=== PATIENT | male | born 1955 | race Caucasian/White ===

== ENCOUNTER 2019-10-15 07:32 | Day surgery (SDC) | payer OTHER, SELFPAY ==
--- NOTE | 2019-09-24 03:55 | HP_ITS ---
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 Is patient in pain?: Yes (left groin ) Pain scale (1-10): 3 Allergies No Known Allergies Allergy (Verified 09/24/19 15:03) Medications amlodipine 5 mg tablet 5 mg PO DAILY 09/24/19 [History Confirmed 09/24/19] valsartan 320 mg tablet 320 mg PO DAILY 09/24/19 [History Confirmed 09/24/19] PFSH Medical History (Updated 09/24/19 @ 15:53 by Jay Winchester MD) Inguinal hernia of left side without obstruction or gangrene (Acute) History of testicular cancer (Acute) HTN (hypertension) (Chronic) Surgical History (Updated 09/24/19 @ 15:01 by Jenn Grover) History of colonoscopy (Acute ~2008) History of orchiectomy, unilateral (Acute ~1999) Family History (Updated 09/24/19 @ 15:02 by Jenn Grover) Mother Diabetes Hypertension Cancer Asthma Father Hypertension Social History (Updated 09/24/19 @ 15:55 by Jay Winchester MD) Smoking Status: Former smoker HPI HPI HPI: JEWELS SANTOS, is a 64 M who presents to the office today for HPI HPI Surgical H&P: Yes HPI: JEWELS SANTOS, is a 64 M who presents to the office today for surgical consultation regarding suspected left inguinal hernia. Primary care physician and referring doctor is and a written compromise surgical consult recommendations will be returned to him. For at least 3 months the patient has had some intermittent sharp pain in the left groin. He was dragging a deer within the past week or so and had increased discomfort. He has been able to lie supine and achieve some relief. He has not had a previous left inguinal hernia repair. He has had a previous right radical orchiectomy for testicular cancer in the year 1999. 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 He is expected to be able to lift 60 pounds. He denies any acute change in bowel habits. Otherwise enjoys a very active life both at work and at home. ROS General General: No weight change, appetite, fatigue, colon cancer, breast cancer or weakness HEENT HEENT: No difficulty swallowing, eye injury, eye surgery, swollen glands or hoarseness Endo Endocrine: No thyroid disease, diabetes mellitus, thyroid cancer, Hair loss, heat intolerance or cold intolerance Cardio Cardiovascular: Yes high blood pressure; no murmur, pacemaker, heart disease, atrial fibrillation, heart attack, heart stent, palpitations, shortness of breat with exertion or chest pain Psych Psychiatric: No depression, anxiety or hearing voices Resp Respiratory: No shortness of breath, No sleep apnea, No cough, No COPD, No asthma, No emphysema, No wheezing Gastro Gastrointestinal: Yes abdominal pain, No nausea or vomiting, No diarrhea, No constipation, No blood in stool, No acid reflux, No hemorrhoids, No ulcers, No gallbladder problem, No black,tarry stools Osmin Hematologic: No blood thinners, No blood disorders, No bleeding, No anemia, No blood clots Neuro Neurologic: No weakness Exam Const General: cooperative, healthy appearing, comfortable, no acute distress Nutritional Appearance: average body habitus Orientation: alert, awake [facility] Head: normal to inspection Chest Chest palpation & inspection: normal inspection of the chest Resp Effort & Inspection: normal respiratory effort Auscultation: clear to auscultation bilaterally Cardio Rate: regular rate Rhythm: regular rhythm Heart Sounds: no murmurs GI Palpation: soft, no hepatosplenomegaly Auscultation: normal bowel sounds Other: Well-healed transverse incision right groin. Surgically absent right testicle. Solid right inguinal floor. Left testicle without mass. Easily palpable indirect left inguinal hernia. Reducible with supine positioning. Skin General: no rashes or lesions noted Neuro Cognition: normal cognition Extrem General: no calf tenderness bilaterally Psych Affect: normal affect Assessment & Plan Problems 1. Inguinal hernia of left side without obstruction or gangrene K40.90 Plan Symptomatic reducible indirect left inguinal hernia. Patient otherwise is generally healthy. He has not used cigarettes for many years. He occasionally use smokeless tobacco. He would be a candidate for general anesthesia and a laparoscopic left inguinal herniorrhaphy with mesh. In detail I have discussed the technique, benefits, risks and alternatives. Because the hernia is symptomatic I do recommend repair. He has had an opportunity to ask and have questions answered. We will schedule and proceed at his discretion. It is of note that his also is having some health issues she states that she will be scheduling appointment for my assistance. CC: Dr. Joe Winchester M.D., F.A.C.S. Coding Level of Care Code 45354 Diagnoses Inguinal hernia of left side without obstruction or gangrene K40.90 09/24/19 1555 <Electronically signed by Jay kamara MD> Date _ Jay Winchester MD
[2019-09-24 15:02] VITALS: BMI 25.8
[2019-10-15] VITALS (7 sets, daily range): BP systolic 95–142; BP diastolic 70–89; PULSE 66–94; RESP 16; TEMP 36.3–36.8; O2SAT 92–97; BMI 25.0
[2019-10-15] MEDS: Lactated Ringers 1,000 ML 15 ML IV (07:00)
--- NOTE | 2019-10-15 07:40 | EKG12_ITS ---
Test Reason : PRE OP Blood Pressure : / mmHG Vent. Rate : 073 BPM Atrial Rate : 073 BPM P-R Int : 180 ms QRS Dur : 094 ms QT Int : 374 ms P-R-T Axes : 050 005 027 degrees QTc Int : 412 ms Normal sinus rhythm Normal ECG No previous ECGs available Confirmed by FAHEEM DOMÍNGUEZ, EDUARDO ([id number]), legal editor MAYRA PINTO ([id number]) on 10/16/2019 12:01:54 PM Referred By: Jay Winchester Confirmed By:EDUARDO MAYEN MD
[2019-10-15 07:59] LABS: Hematocrit 47.8 % (40-54); Hemoglobin 16.5 g/dL (13.0-16.5); Mean Corp Hgb Conc 34.5 g/dL (32-36); Mean Corpuscular Hgb 31.7 pg (27.0-32.0); Mean Corpuscular Volume 91.9 fL (80-94); Platelet Count 266 K/mm3 (150-450); RBC Distribution Width CV 12.2 % (11.6-14.6); RBC Distribution Width SD 40.8 fl (35.1-43.9)
[2019-10-15 08:11] LABS: Anion Gap 7 (5-15); BUN 17 mg/dL (7-18); BUN/Creat Ratio 14.9 RATIO (10-20); Calcium,Total 9.7 mg/dL (8.5-10.1); Chloride 106 mmol/L (98-107); Creatinine, Serum 1.14 mg/dL (0.70-1.30); EST Glomerular Filtration Rate 69 mL/min (>60); Est Glom Filt Rate - Afr Amer 84 mL/min (>60); Estimated Creatinine Clearance 67.19 ml/min; Glucose 113 mg/dL (74-106); Potassium 4.2 mmol/L (3.5-5.1); Sodium Level 139 mmol/L (136-145)
--- NOTE | 2019-10-15 09:14 | PCM.DC.GS ---
Discharge Diet: Light diet - advance as tolerated - if you have questions about your diet instructions, please talk to you doctor. Discharge Activity: May Not Drive - for 3-5 days or while taking narcotic pain medicine. May shower in (days): 1 Lifting Restrictions: 10 pounds Call your doctor if your incision/area has: Continuous Slow Oozing, Sudden Increased Bleeding, Increased Pain/ Swelling, Increased Redness, Foul Smelling Discharge Call your doctor if you observe: Fever of 101 or Higher Suture Line Care: Avoid Pulling/Pushing, Avoid Pinching/Bending Additional Dressing/Incision Instructions:: Change or remove dressing in 4 days. Leave steri-strips in place for 1 week. Allergies/Adverse Reactions: Allergies No Known Allergies Allergy (Verified 10/10/19 15:17) Medications to take at Discharge amlodipine 5 mg tablet 5 mg PO DAILY 09/24/19 valsartan 320 mg tablet 320 mg PO DAILY 09/24/19 Hydrocodone Bitart/Apap 5-325 [Bardolph 5MG-325MG] 1 tablet PO Q6H PRN PRN 2 Days #6 tablet 10/15/19 The following prescriptions were given: Hydrocodone Bitart/Apap 5-325 [Bardolph 5MG-325MG] 1 tablet PO Q6H PRN PRN 2 Days #6 tablet PRN Reason: Pain Transmission Status: Sent to [facility] Primary Care Physician: David Diaz DO [Primary Care Provider] - Test Results: Test results from this visit will be discussed in further detail at your follow-up appointment, if applicable. Please Follow Up With: Jay Winchester MD - [phone] When: Call to make an appointment to be seen in about 10 days.
--- NOTE | 2019-10-15 09:15 | PCM.HP.BLA ---
Problem List (1) Inguinal hernia of left side without obstruction or gangrene Status: Acute History and Physical Date of Admission: 10/15/19 Intake Visit Reasons: Lt Inguinal Hernia Chief Complaint: left inguinal hernia, discuss colonoscopy Parking Manager Required: No Is patient in pain?: Yes (left groin ) Pain scale (1-10): 3 Allergies No Known Allergies Allergy (Verified 09/24/19 15:03) Medications amlodipine 5 mg tablet 5 mg PO DAILY 09/24/19 [History Confirmed 09/24/19] valsartan 320 mg tablet 320 mg PO DAILY 09/24/19 [History Confirmed 09/24/19] [facility] Medical History (Updated 09/24/19 @ 15:53 by Jay Winchester MD) Inguinal hernia of left side without obstruction or gangrene (Acute) History of testicular cancer (Acute) HTN (hypertension) (Chronic) Surgical History (Updated 09/24/19 @ 15:01 by Jenn Grover) History of colonoscopy (Acute ~2008) History of orchiectomy, unilateral (Acute ~1999) Family History (Updated 09/24/19 @ 15:02 by Jenn Grover) Mother Diabetes Hypertension Cancer Asthma Father Hypertension Social History (Updated 09/24/19 @ 15:55 by Jay Winchester MD) Smoking Status: Former smoker HPI HPI HPI: JEWELS SANTOS, is a 64 M who presents to the office today for HPI HPI Surgical H&P: Yes HPI: JEWELS SNATOS, is a 64 M who presents to the office today for surgical consultation regarding suspected left inguinal hernia. Primary care physician and referring doctor is and a written compromise surgical consult recommendations will be returned to him. For at least 3 months the patient has had some intermittent sharp pain in the left groin. He was dragging a deer within the past week or so and had increased discomfort. He has been able to lie supine and achieve some relief. He has not had a previous left inguinal hernia repair. He has had a previous right radical orchiectomy for testicular cancer in the year 1999. 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 He is expected to be able to lift 60 pounds. He denies any acute change in bowel habits. Otherwise enjoys a very active life both at work and at home. ROS General General: No weight change, appetite, fatigue, colon cancer, breast cancer or weakness HEENT HEENT: No difficulty swallowing, eye injury, eye surgery, swollen glands or hoarseness Endo Endocrine: No thyroid disease, diabetes mellitus, thyroid cancer, Hair loss, heat intolerance or cold intolerance Cardio Cardiovascular: Yes high blood pressure; no murmur, pacemaker, heart disease, atrial fibrillation, heart attack, heart stent, palpitations, shortness of breat with exertion or chest pain Psych Psychiatric: No depression, anxiety or hearing voices Resp Respiratory: No shortness of breath, No sleep apnea, No cough, No COPD, No asthma, No emphysema, No wheezing Gastro Gastrointestinal: Yes abdominal pain, No nausea or vomiting, No diarrhea, No constipation, No blood in stool, No acid reflux, No hemorrhoids, No ulcers, No gallbladder problem, No black,tarry stools Osmin Hematologic: No blood thinners, No blood disorders, No bleeding, No anemia, No blood clots Neuro Neurologic: No weakness Exam Const General: cooperative, healthy appearing, comfortable, no acute distress Nutritional Appearance: average body habitus Orientation: alert, awake [facility] Head: normal to inspection Chest Chest palpation & inspection: normal inspection of the chest Resp Effort & Inspection: normal respiratory effort Auscultation: clear to auscultation bilaterally Cardio Rate: regular rate Rhythm: regular rhythm Heart Sounds: no murmurs GI Palpation: soft, no hepatosplenomegaly Auscultation: normal bowel sounds Other: Well-healed transverse incision right groin. Surgically absent right testicle. Solid right inguinal floor. Left testicle without mass. Easily palpable indirect left inguinal hernia. Reducible with supine positioning. Skin General: no rashes or lesions noted Neuro Cognition: normal cognition Extrem General: no calf tenderness bilaterally Psych Affect: normal affect Assessment & Plan Problems 1. Inguinal hernia of left side without obstruction or gangrene K40.90 Plan Symptomatic reducible indirect left inguinal hernia. Patient otherwise is generally healthy. He has not used cigarettes for many years. He occasionally use smokeless tobacco. He would be a candidate for general anesthesia and a laparoscopic left inguinal herniorrhaphy with mesh. In detail I have discussed the technique, benefits, risks and alternatives. Because the hernia is symptomatic I do recommend repair. He has had an opportunity to ask and have questions answered. We will schedule and proceed at his discretion. It is of note that his also is having some health issues she states that she will be scheduling appointment for my assistance. CC: Dr. Joe Winchester M.D., F.A.C.S. Coding Level of Care Code 25202 Diagnoses Inguinal hernia of left side without obstruction or gangrene K40.90 09/24/19 1555 <Electronically signed by Jay Winchester MD> Date Jay Winchester MD Cosigner Signature: Date (if applicable) CC: DO David Diaz ~ I have re-examined the patient. There are no clinical changes since date of exam.
[2019-10-15] MEDS: Cefazolin 2 GM in 0.9% Normal Saline 100 ML IV (09:17)
[2019-10-15] MEDS: Bupivacaine Mpf 0.5% 30 ML VIAL (10:05)
--- NOTE | 2019-10-15 10:15 | OP.PCM_ITS ---
Problem List (1) Inguinal hernia of left side without obstruction or gangrene Status: Acute Report of Operation Date of Procedure: 10/15/19 Pre-Operative Diagnosis: Symptomatic left inguinal hernia Post-Operative Diagnosis: Symptomatic indirect left inguinal hernia Surgery/Procedure Performed:: Laparoscopic left inguinal herniorrhaphy. Bard 3D Max lot [id number]. Reference #[id number]. Expiry date 07/03/2024 Description of Surgical Findings:: 64-year-old gentleman with a very symptomatic left inguinal hernia was taken to the operating room. Timeout informed consent was obtained. He underwent general endotracheal intubation anesthesia. The abdomen was sterilely prepped and draped. Ancef 2 g were given intravenously preoperatively. 0.5% Marcaine was used as a local anesthetic. Throughout the procedure a total of 30 cc was used. Skin sites were pre-anesthetized. A vertical infraumbilical incision was created holding sutures of 0 Vicryl placed varies needle inserted saline drop test performed the abdomen is insufflated CO2 to a pressure of 10 minutes mercury pressure. 5-minute trochars were placed in the right and left lower quadrants. The abdomen was inspected. No evidence of any superficial abnormalities. The right groin appeared to be solid intact. The left groin had a distinct indirect inguinal hernia. The sigmoid colon was somewhat adherent to the pelvic sidewall. I incised the peritoneum superior lateral to the internal ring carried that medially. I then completely dissected the peritoneum free there was significant adherence to the cord structures and this had to be tediously sharply and bluntly dissected free. Hemostasis attained with hemo- lock clips. The sac was then completely released from the internal ring leaving quite a significant defect. I dissected free the indirect space direct space and femoral area. I then placed a large 3D max mesh. That very nicely covered the defect area direct and indirect space. I secured it with secure strap laterally superiorly and medially. Excellent coverage which is achieved. The peritoneum was then approximated to itself with the secure strap. Complete obliteration to the mesh was achieved. A ileal nerve block is performed with local anesthetic under laparoscopic visualization as well. Trochars were removed under visualization. The abdomen was allowed to deflate the CO2. The fascia at the umbilicus approximate interrupted 0 Vicryl [id number] suture. Skin edges approximate interrupted 4 Monocryl subdermal stitches. Steri-Strips Telfa and OpSite dressings applied. Sponge and instrument and needle counts were reported the surgeon be correct. Blood loss minimal. Drains none. Specimens none. The patient was taken to recovery area in satisfactory addition. Jay Winchester M.D., F.A.C.S. Type of Anesthesia:: General Anesthesiologist: Joan Olivera
--- NOTE | 2019-10-15 10:35 | EKG12_ITS ---
Test Reason : POST OP Blood Pressure : / mmHG Vent. Rate : 090 BPM Atrial Rate : 090 BPM P-R Int : 190 ms QRS Dur : 100 ms QT Int : 380 ms P-R-T Axes : 005 -03 016 degrees QTc Int : 464 ms Normal sinus rhythm Normal ECG When compared with ECG of 15-OCT-2019 08:07, MANUAL COMPARISON REQUIRED, DATA IS UNCONFIRMED Confirmed by FAHEEM DOMÍNGUEZ, EDUARDO ([id number]), purchase request editor MAYRA PINTO ([id number]) on 10/16/2019 12:01:39 PM Referred By: Jay Winchester Confirmed By:EDAURDO MAYEN MD
[2019-10-15] MEDS: Lactated Ringers 1,000 ML 100 ML IV (11:06)
[2019-10-15] MEDS: HYDROcodone Bitartrate/Apap 5/325 Tablet PO (12:57)
--- NOTE | 2019-10-15 13:10 | SUR.PHASEII ---
DR VERNON NOTIFIED VIA [place], SENIOR CLINICAL RESEARCH ASSOCIATE, THAT PATIENT HAS MET D/C CRITERIA, VOIDED, MEDICATED, VSS. MAY BE D/C HOME PER DR VERNON.
== END 2019-10-15 13:56 | disposition home or self-care (01) ==
LOC: SDC 07:33 → AC 07:34
PROVIDERS: Family Provider Family Medicine; PCP Family Medicine; Referring Provider Surgery; Visit Provider Surgery
PROC: (CPT 49650; principal; 2019-10-15 09:30)
DX: K40.90 Unilateral inguinal hernia, without obstruction or gangrene, not specified as recurrent (principal); I10 Essential (primary) hypertension; Z85.47 Personal history of malignant neoplasm of testis; Z90.79 Acquired absence of other genital organ(s); Z87.891 Personal history of nicotine dependence
CPT/HCPCS: 49650; 36415; 80048; 85027; 93005; J7120; C1781; J2405